=== PATIENT | male | born 1995 | race Caucasian/White ===

== ENCOUNTER 2018-06-07 05:15 | Day surgery (SDC) | payer BC ==
[2018-06-06 14:04] VITALS: BMI 28.7
[2018-06-07] MEDS ORDERED: SUCCINYLCHOLINE CHLORIDE 200 MG/10 ML VIAL ONE (06:54)
[2018-06-07] MEDS ORDERED: PROPOFOL 20 ML ONE ×4 (06:54)
[2018-06-07] MEDS ORDERED: MIDAZOLAM HCL 2 MG/2 ML SINGLE DOSE VIAL ONE ×2 (06:56→08:01)
[2018-06-07] MEDS ORDERED: BUPIVACAINE HCL/PF 0.5% (5MG/ML) 10 ML VIAL ONE (07:25)
[2018-06-07] MEDS ORDERED: LIDOCAINE 1%-EPI 1:100,000 30 ML MDV IJ ONE (07:25)
--- NOTE | 2018-06-07 07:59 | HP ---
Satellite [facility] - Chief Complaint Chief Complaint: RIGHT KNEE PAIN History Source: Patient - Past Medical History Allergies/Adverse Reactions: Allergies Allergy/AdvReac Type Severity Reaction Status Date / Time Penicillins Allergy Severe Swelling Verified 06/07/18 06:25 - Current Medications Current Medications: Home Medications Medication Instructions Recorded NK [No Known Home Medication] 06/06/18 Satellite Physical Exam - Physical Examination Vital Signs: Vital Signs Period Temp Pulse Resp BP Sys/Campos Pulse Ox Last 24 Hr 97.8 F-97.8 F 83-83 20-20 138-138/89-89 98 Extremities: Other (+ R KNEE JOINT LINE TENDERNESS) Satellite Impression/Plan - Impression/Plan Impression: INTERNAL DERANGEMENT R KNEE Operative Procedure: ARTHROSCOPY R KNEE Date to be Performed: 06/07/18
[2018-06-07] MEDS ORDERED: LIDOCAINE 1%/EPI 1:100000 (20 ML MULTI DOSE VIAL) IJ ONE ×2 (08:16→08:29)
[2018-06-07] MEDS ORDERED: BUPIVACAINE HCL/PF (5 MG/ML) 30 ML VIAL IJ ONE (08:28)
--- NOTE | 2018-06-07 08:37 | OP ---
Operative Note - Note: Operative Date: 06/07/18 Pre-Operative Diagnosis: INTERNAL DERANGEMENT RIGHT KNEE Operation: ARTHROSCOPY RIGHT KNEE WITH PARTIAL LM Post-Operative Diagnosis: Same as Pre-op Surgeon: Partha Loyola Anesthesia: General Operative Report Dictated: Yes
--- NOTE | 2018-06-07 08:52 | OP ---
DATE OF OPERATION: 06/07/2018 PREOPERATIVE DIAGNOSIS: Internal derangement, right knee. POSTOPERATIVE DIAGNOSIS: Internal derangement, right knee. PROCEDURE: Arthroscopy, right knee, partial lateral meniscectomy. SURGICAL ATTENDING: Partha Loyola MD ANESTHESIA: General, LMA. CLOSURE: Nylon 4-0. COMPLICATIONS: None. CONDITION: To recovery room in stable condition. DESCRIPTION OF OPERATIVE PROCEDURE: Patient was taken to the operating room on June 07, 2018. General anesthesia with LMA was administered by the anesthesiologist. The right lower extremity was prepped and draped in the usual sterile fashion. The medial and lateral infrapatellar portal sites were infiltrated with 1% Xylocaine with epinephrine. Each portal was then made with a 15 blade followed by a blunt trocar. The scope was placed in the lateral infrapatellar portal and up into the suprapatellar pouch. The knee was inflated with a cocktail of 10 mL of 1% Xylocaine, 10 mL of 0.5% Marcaine, and 20 mL of arthroscopic saline. After allowing the anesthetic to work in the knee the procedure was performed. The pouch was visualized to be clean. The medial and lateral gutters were clean and free of any loose bodies. The undersurface of the patella and trochlea were visualized to be intact. With valgus stress on the knee, the medial compartment was entered. The medial meniscus was visualized, probed, and found to be intact. The medial femoral condyle was found to be intact as well as the medial tibial plateau. At 90 degrees, the ACL was visualized, probed, and found to be intact. In the figure-4 position, the lateral compartment was entered. The lateral meniscus was visualized, probed, and found to have a complex tear of its midportion. This was debrided back to smooth and stable meniscal tissue with meniscal biters and arthroscopic shaver. The lateral femoral condyle was run and found to be intact as was the lateral tibial plateau. The knee was irrigated with copious amounts of irrigation. The portals were closed with 4-0 nylon. Prior to closure 20 mL of 0.5% Marcaine was infused into the knee for postoperative analgesia. A sterile pressure dressing was placed over the knee. Patient awakened from anesthesia and transferred to recovery in stable condition. No complication. Estimated blood loss negligible. Laxmi IRAHETA/[id number]
[2018-06-07] MEDS ORDERED: PROMETHAZINE HCL 25 MG/1 ML VIAL IVPB PRN (08:55)
[2018-06-07] MEDS ORDERED: ONDANSETRON 4 MG/2 ML VIAL IVPUSH PRN (08:55)
[2018-06-07] MEDS ORDERED: oxyCODONE HCL 5 MG TABLET PO PRN (08:55)
[2018-06-07] MEDS ORDERED: LACTATED RINGERS SOLUTION 1,000 ML IV SCH (09:00)
[2018-06-07 11:23] VITALS: BP 153/69; PULSE 80; TEMP 98.2
--- NOTE | 2018-06-08 16:20 | PATH ---
Surgical Pathology Report Patient Name: LALA PLAZA [facility]. Rec. #: [id number] /Age/Gender: 1995 (Age: 22) / M Account: [id number] Location: [facility] SURGICAL Taken: 06/07/2018 Received: 06/07/2018 Reported: 06/08/2018 Physicians: Partha Loyola M.D. Specimen(s) Received RIGHT KNEE SHAVINGS Clinical History Right knee tear Final Diagnosis KNEE SHAVINGS, RIGHT, ARTHROSCOPY: FRAGMENTS OF CARTILAGE, DENSE FIBROCONNECTIVE TISSUE, ADIPOSE TISSUE, REACTIVE SYNOVIUM, AND SKIN. Electronically Signed Radha Sewell M.D. Gross Description Received in formalin, labeled "right knee shavings," is a 3.0 x 2.4 x 0.3 cm. aggregate of garcia-yellow soft tissue fragments. A sales utility representative portion is submitted in one cassette. /06/07/201806/07/2018
== END 2018-06-07 11:23 | disposition home or self-care (01) ==
LOC: JASU-SURG 05:15
PROVIDERS: ATTEND Orthopaedic Surgery
PROC: 0SBC4ZZ Excision of Right Knee Joint, Percutaneous Endoscopic Approach (ICD-10-PCS; principal; 2018-06-07 08:00)
DX: S83.271A Complex tear of lateral meniscus, current injury, right knee, initial encounter (principal); X58.XXXA Exposure to other specified factors, initial encounter; Y93.9 Activity, unspecified; Y92.9 Unspecified place or not applicable; Y99.9 Unspecified external cause status
CPT/HCPCS: 88304-TC; 94760; 97116-GP